=== PATIENT | female | born 1970 | race Caucasian/White ===

== ENCOUNTER 2018-09-06 16:55 | Emergency (ER) | payer OTHER ==
[~2018-09-06] VITALS: Ht 165.1 cm; Wt 90.7 kg
[2018-09-06] MEDS ORDERED: LISINOPRIL20 MG PO (17:13)
[2018-09-06] MEDS ORDERED: IBUPROFEN 800800 M1 PO (18:03)
[2018-09-06] MEDS ORDERED: ACETAMINOPHEN-1 EAC1 PO (18:03)
[2018-09-06 18:09] VITALS: BP 151/95
== END 2018-09-06 18:09 | disposition home or self-care (01) ==
LOC: M.ERS 16:55
DX: S92.355A Nondisplaced fracture of fifth metatarsal bone, left foot, initial encounter for closed fracture (principal); I10 Essential (primary) hypertension; X50.1XXA Overexertion from prolonged static or awkward postures, initial encounter; Y93.89 Activity, other specified; Y92.89 Other specified places as the place of occurrence of the external cause; Y99.8 Other external cause status